=== PATIENT | male | born 2000 | race African-American/Black ===

== ENCOUNTER 2022-02-09 12:42 | Outpatient (CLI) | payer OTHER ==
[~2022-02-09] VITALS: Ht 170.3 cm; Wt 93.7 kg
[2022-02-09] MEDS ORDERED: INDERAL 20MG20 MG PO (13:36)
[2022-02-09] MEDS ORDERED: PROAIR HFA0.09 MG/AC IH (13:37)
[2022-02-09] MEDS ORDERED: ROBAXIN 75750 MG/TAB PO (13:37)
[2022-02-09] MEDS ORDERED: ZOLOFT 50MG50 MG PO (13:37)
[2022-02-09] MEDS ORDERED: LIDODERM 5% PATC1 EA TP (13:38)
[2022-02-09 13:40] VITALS: BP 130/79; PULSE 101; TEMP 98.9
[2022-02-09 14:33] VITALS: BP 114/60; PULSE 100
--- NOTE | 2022-02-09 14:33 | NUR ---
Report from Melvi Gagnon lab nurse.Dressing observed clean,dry,and intact.
--- NOTE | 2022-02-09 14:41 | NUR ---
Discharge instructions given to pt.pt verbalizes understanding.pt escorted out by this nurse.
== END 2022-02-09 14:41 ==
LOC: COL.CAR 12:42
DX: R00.0 Tachycardia, unspecified (principal); R42 Dizziness and giddiness
CPT/HCPCS: C1764

== ENCOUNTER → 2022-08-10 | Outpatient (CLI) | payer OTHER ==
[~2022-08-10] MED LIST: INDERAL 20MG20 MG PO; LIDODERM 5% PATC1 EA TP; PROAIR HFA0.09 MG/AC IH; ROBAXIN 75750 MG/TAB PO; ZOLOFT 50MG50 MG PO
== END ==
LOC: COL.PUL 09:17
DX: R06.02 Shortness of breath (principal)